=== PATIENT | female | born 1955 | race Caucasian/White ===

== ENCOUNTER → 2024-01-01 07:18 | Outpatient (REF) | payer MEDICARE, SELFPAY | LOC: RCS 07:18 | PROVIDERS: ATTENDING PHYSICIAN Physician Assistant; FAMILY PHYSICIAN Internal Medicine | DX: I25.10 Atherosclerotic heart disease of native coronary artery without angina pectoris (principal); I25.5 Ischemic cardiomyopathy | CPT/HCPCS: 93306 ==

== ENCOUNTER → 2024-06-08 07:55 | Outpatient (REF) | payer MEDICARE, SELFPAY | LOC: DHCBC/DCA 07:55 | PROVIDERS: ATTENDING PHYSICIAN Internal Medicine Interventional Cardiology; FAMILY PHYSICIAN Internal Medicine | DX: I25.10 Atherosclerotic heart disease of native coronary artery without angina pectoris (principal); I10 Essential (primary) hypertension; Z95.5 Presence of coronary angioplasty implant and graft | CPT/HCPCS: 78452; 93017; A9500; J2785 ==

== ENCOUNTER → 2024-06-28 15:56 | Outpatient (REF) | payer MEDICARE, SELFPAY | LOC: RCS 15:56 | PROVIDERS: ATTENDING PHYSICIAN Internal Medicine Interventional Cardiology; FAMILY PHYSICIAN Internal Medicine | DX: I25.10 Atherosclerotic heart disease of native coronary artery without angina pectoris (principal); I10 Essential (primary) hypertension; Z95.5 Presence of coronary angioplasty implant and graft | CPT/HCPCS: 93306 ==

== ENCOUNTER 2024-07-08 16:02 | Emergency (ER) | payer MEDICARE, SELFPAY ==
[2024-07-08 16:07] VITALS: BP 142/82
--- NOTE | 2024-07-08 16:46 | ED.GENMED ---
History of Present Illness
General
Chief Complaint: Musculo-Skeletal Complaint
Source: patient
Exam Limitations: none
Time Seen by Provider: 07/08/24 16:29
Nursing documentation reviewed up to this point in time: agreed with
History of Present Illness
History of Present Illness:
68-year-old female with past ministry of hypertension hyperlipidemia, CAD status post stent presented to the emergency department today with concerns of left wrist discomfort over the past week and a half unclear any specific injuries proceeding no
redness or warmth no fevers
Past History
Past History
ED Past Medical History: HTN and Hypercholesterolemia
Social History
Tobacco: Smoker
Review of Systems
Review of Systems
Allergies reviewed?: Yes
All Other Systems: ROS reviewed and negative except as documented in HPI and ROS
Phy Exam
Physical Exam
Physical Exam:
GENERAL: Alert , in no apparent distress
EYE: pupils equal and reactive
NECK: Supple, no significant adenopathy.
ENT: o/p clr, mmm.
CARDIAC: Regular rate and rhythm .
LUNGS: Clear breath sounds bilaterally, no acute respiratory distress, no wheezes/rales/rhonchi
ABDOMEN: Soft, without focal tenderness, no r/g, no cvat
NEUROLOGICAL: Alert and oriented, no focal neuro deficits
SKIN: Warm and dry, skin intact.
MUSCULOSKELETAL: Discomfort to the left wrist overlying the distal radius region. Patient has a positive Urbano test otherwise no redness or warmth good range of motion. No specific bony tenderness. No edema, well perfused.
PSYCH: Normal and appropriate interaction.
Course
Orders/Labs/Results
Orders:
Orders
07/08/24 16:10
CR Wrist - Left Min 3 Views Urgent
Comment:
Reason For Exam: pain
07/08/24 16:45
Splints/Slings/Crut- Treatment ONCE
Location: Left
Type of Splint: Other
Comment: thumb spica
Vital Signs
Initial and Last Documented VS:
Initial Vital Signs
Temp Pulse Resp BP Pulse Ox
98.3 F 79 18 142/82 99
07/08/24 16:07 07/08/24 16:07 07/08/24 16:07 07/08/24 16:07 07/08/24 16:07
Last Documented Vital Signs
Temp Pulse Resp BP Pulse Ox
98.3 F 79 18 142/82 99
07/08/24 16:07 07/08/24 16:07 07/08/24 16:07 07/08/24 16:07 07/08/24 16:07
MDM/Problems Addressed
MDM/Problems Addressed:
68-year-old male presenting to the emergency department today with concerns of wrist discomfort over the past week and a half denies any specific inciting event. No injuries no redness or warmth no fevers no signs of infection on examination.
Patient does have a positive Urbano test potentially consistent with de Quervain's tenosynovitis. Patient was placed in a thumb spica splint advised for orthopedic follow-up for ongoing symptoms advised ice but otherwise stable for discharge
return precautions given.
*Critical Care Note
Total Time (30-74mins, 75-104mins- exclusive of procedures): Not Applicable
ED Attending Note
-
Portions of this chart may have been created with voice recognition software.� Occasional wrong word or��sound alike� substitutions may have occurred due to the inherent limitations of voice recognition software.
Discharge Plan
Departure
Patient Disposition: Home (Routine Discharge)
Date of Disposition: 07/08/24
Time of Disposition: 16:50
Patient with high blood pressure during this ER visit?: No
Condition: Good
Covid-19: Not Applicable
Discharge Problem:
De Quervain's tenosynovitis, left
Instructions: de Quervain tendinopathy
Prescriptions:
No Action
clopidogrel 75 mg Tablet
75 mg PO DAILY Qty: 90 3RF
pantoprazole 40 mg Tablet,Delayed Release (Dr/Ec)
40 mg PO DAILY Qty: 30 0RF
nitroglycerin 0.4 mg Tablet, Sublingual
0.4 mg sublingual [id number] PRN (Reason: chest pain) Qty: 25 1RF
aspirin [Children's Aspirin] 81 mg Tablet,Chewable
81 mg PO DAILY Qty: 1 0RF
metoprolol succinate 25 mg Tablet Extended Release 24 Hr
25 mg PO DAILY Qty: 90 3RF
rosuvastatin 20 mg Tablet
20 mg PO QPM Qty: 90 3RF
cefdinir 300 mg capsule
300 mg PO BID Qty: 6 0RF
Rx Instructions:
sinusitis
nystatin 100,000 unit/mL Suspension
5 ml PO QID Qty: 250 0RF
Referrals:
Erwin Richards MD [Family Provider] -
Betito Perla MD [Active] - Follow up in 5-7 days
Activity Restrictions/Additional Instructions:
You came to the emergency department today with concerns of wrist discomfort. This is likely a tendinopathy. Please rest ice and elevate and otherwise follow-up with orthopedics if symptoms or not improving. Return to the emergency department for
any worsening, new or concerning symptoms.
Interventions
Interventions:
*Risk Screen - Suicide Last Done: 07/08/24 16:07
*General Assessment Last Done: 07/08/24 16:07
*Neglect/Abuse Screening Last Done: 07/08/24 16:07
Discharge Date and Time
Print Language: PUERTO RICAN
== END 2024-07-08 17:06 | disposition home or self-care (01) ==
LOC: EMR 16:02
PROVIDERS: EMERGENCY PHYSICIAN Emergency Medicine; FAMILY PHYSICIAN Internal Medicine
DX: M65.4 Radial styloid tenosynovitis [de Quervain] (principal); M25.532 Pain in left wrist; I10 Essential (primary) hypertension; E78.00 Pure hypercholesterolemia, unspecified; I25.10 Atherosclerotic heart disease of native coronary artery without angina pectoris; I25.2 Old myocardial infarction; F17.200 Nicotine dependence, unspecified, uncomplicated; Z95.5 Presence of coronary angioplasty implant and graft; Z85.828 Personal history of other malignant neoplasm of skin; Z79.82 Long term (current) use of aspirin; Z88.5 Allergy status to narcotic agent
CPT/HCPCS: 99283; 29125; 73110

== ENCOUNTER 2025-04-03 10:56 | Emergency (ER) | payer MEDICARE, SELFPAY ==
[2025-04-03] VITALS (9 sets, daily range): BP systolic 103–167; BP diastolic 64–122
[2025-04-03 11:30] LABS: % Basophils 0.6 % (0-2); % Eosinophils 1.9 % (0-6); % Immature Granulocytes 0.4 % (0-0.5); % Lymphocytes 27.3 % (20.5-51.1); % Monocytes 11.4 % (1.7-9.3); % Neutrophils 58.4 % (42.2-75.2); Absolute Eosinophils 0.1 10^3/uL (0-0.7); Absolute Lymphocytes 1.3 10^3/uL (1.2-3.4); Absolute Monocytes 0.5 10^3/uL (0.1-0.6); Absolute Neutrophils 2.8 10^3/uL (1.4-6.5); Hematocrit 38.9 % (37.0-47.0); Hemoglobin 12.8 g/dL (12.0-16.0); Mean Corp Hgb Conc. 32.9 g/dL (33.0-37.0); Mean Corpuscular Hgb 27.8 pg (27.0-31.0); Mean Corpuscular Volume 84.4 fL (81.0-99.0); Mean Platelet Volume 10.2 fL (7.4-10.4); Nucleated Red Blood Cells % 0 %; Platelet Count 160 10^3/uL (130-400); Red Blood Cell Count 4.61 10^6/uL (4.20-5.40); Red Cell Dist. Width 15.5 % (11.5-14.5); White Blood Cell Count 4.7 10^3/uL (4.8-10.8)
--- NOTE | 2025-04-03 11:30 | ED.GENMED ---
History of Present Illness
General
Chief Complaint: Chest Pain
Time Seen by Provider: 04/03/25 11:30
History of Present Illness
History of Present Illness:
TIME OF INITIAL ENCOUNTER: 11:30 AM
HPI: Patient presents with chest pain described as a 'like somebody punching me' since yesterday. This is associated with lightheadedness/dizziness. She was at the dentist yesterday when this started. The symptoms are not necessarily exertional
in nature. In October 2023 she had 2 LAD stents placed with Dr. Olvera. She was taken off of Plavix a few months ago. The pain currently feels nothing like the time that she had a heart attack described as a severe pressure sensation.
EXAM:
GENERAL: Well appearing in no distress
HEENT: Moist oral mucosa
CARDIOVASCULAR: No murmurs, normal heart rate, regular rhythm, No chest wall tenderness
PULMONARY: No respiratory distress, breath sounds are clear and equal
ABDOMEN: Soft with no peritoneal signs, no tenderness
NEUROLOGIC: Excellent strength all extremities, no coordination deficits
PSYCHIATRIC: Appropriate mental status, normal insight and judgement
EXTREMITIES: Nontender, no edema, moves all extremities equally
SKIN: No rash, no lesions
NUMBER AND COMPLEXITY OF PROBLEMS ADDRESSED AT THE ENCOUNTER
� Chronic conditions affecting care: FL/CAD
� Acute Exacerbation and/or Progression of Chronic Illness: This is an acute problem
� Differential Diagnosis includes: ACS, anxiety, noncardiac chest pain, chest wall pain
AMOUNT AND/OR COMPLEXITY OF DATA TO BE REVIEWED AND ANALYZED
� I performed an independent evaluation of and my interpretation is:
EKG: Sinus 85, left axis deviation, poor R wave progression, septal Q waves also seen in 2022
CT:
X-rays: I see no acute chest x-ray abnormality
Laboratory Studies: Troponins negative, second troponin negative. CBC chemistries unremarkable
Other:
� Review of other/old records: Nuclear imaging from last year showed a fixed defect basal inferior consistent with infarction and was inconclusive for ischemia. Echo from last June showed EF of 35 to 40%. Apical akinesis
noted. Stage I diastolic dysfunction. A previous echo showed an EF of 25 to 30%. Cath from October 2023CI 100% acute thrombotic proximal LAD with 2 stents placed and had 30 to 40% stenosis mid left circumflex.
� Clinical information was obtained by an independent historian: I spoke to family
� Prescriptions/Medications Considered but not given:
� Further testing considered but not performed:
RISK OF COMPLICATIONS AND/OR MORBIDITY OR MORTALITY OF PATIENT MANAGEMENT
� Social determinants of health affecting care:. Lives at home
� Discussion with other providers: I discussed case with Dr. Paredes
� Escalation of care including admission/observation vs risk of discharge considered: The patient reports improvement after nitroglycerin was given. She has been essentially chest pain-free throughout her stay in the emergency
department.
ANY OTHER UPDATES:
Patient becoming upset throughout her stay in the Emergency Department. Very upset with the beeping from the monitor. She has been wanting to go home. She will stay for the echo and is eager to leave.
Past History
Past History
ED Past Medical History: HTN and Hypercholesterolemia
Social History
Tobacco: Smoker
Phy Exam
Physical Exam
Physical Exam:
See HPI
Scores
Heart Score for Chest Pain Patients
STEMI patient?: Not applicable
Course
Orders/Labs/Results
Orders:
Orders
04/03/25 10:57
EKG [Electrocardiogram (*1)] Urgent
Reason for Study: Chest Pain
EKG- Treatment ONCE
04/03/25 11:18
Complete Blood Count/With Diff Urgent
Comprehensive Metabolic Panel Urgent
Glycohemoglobin (HgbA1c) Urgent
NT-proBNP Urgent
Comment: ADD ON
PT/INR [Prothrombin Time] Urgent
Is patient on Coumadin/Warfarin?: No
Comment: [email or web address]
PTT Urgent
Troponin I Urgent
04/03/25 11:44
Nitroglycerin Sublingual [Nitrostat (Sublingual)] 0.4 mg SL [id number] PRN
04/03/25 13:21
Add On- LAB Routine
Tests Added?: proBNP, hgbA1c
04/03/25 13:22
CXR2 [CR Chest - 2 Views ] Urgent
Comment:
Reason For Exam: CP, SOB, swelling
04/03/25 13:56
Echo 2D MMode Color/Doppler Urgent
Reason for Study: CP, SOB, dizziness, history of CAD/CM
04/03/25 14:04
Troponin I Stat
Abnormal Lab Results
04/03/25
11:18
WBC 4.7 L 10^3/uL
(4.8-10.8)
MCHC 32.9 L g/dL
(33.0-37.0)
RDW 15.5 H %
(11.5-14.5)
Monocytes % 11.4 H %
(1.7-9.3)
Chloride 108 H mmol/L
(98-107)
BUN 23 H mg/dl
(7-17)
Creatinine 1.1 H mg/dL
(0.6-1.0)
Glucose 190 H mg/dl
(70-99)
Hemoglobin A1c 6.9 H %
(4.0-5.6)
04/03/25 11:18
04/03/25 11:18
Vital Signs
Initial and Last Documented VS:
Initial Vital Signs
Temp Pulse Resp BP Pulse Ox
37.1 C 89 18 167/101 97
04/03/25 11:03 04/03/25 11:03 04/03/25 11:03 04/03/25 11:03 04/03/25 11:03
Last Documented Vital Signs
Temp Pulse Resp BP Pulse Ox
37.1 C 69 16 147/100 99
04/03/25 11:03 04/03/25 15:15 04/03/25 13:00 04/03/25 15:22 04/03/25 15:22
*Critical Care Note
Total Time (30-74mins, 75-104mins- exclusive of procedures): Not Applicable
ED Attending Note
-
Portions of this chart may have been created with voice recognition software.� Occasional wrong word or��sound alike� substitutions may have occurred due to the inherent limitations of voice recognition software.
Discharge Plan
Departure
Patient Disposition: Home (Routine Discharge)
Date of Disposition: 04/03/25
Time of Disposition: 15:19
Patient with high blood pressure during this ER visit?: Yes
Discharge Problem:
Chest pain
Instructions: Chest Pain DCA Follow Up, BLOOD PRESSURE
Prescriptions:
No Action
clopidogrel 75 mg Tablet
75 mg PO DAILY Qty: 90 3RF
pantoprazole 40 mg Tablet,Delayed Release (Dr/Ec)
40 mg PO DAILY Qty: 30 0RF
nitroglycerin 0.4 mg Tablet, Sublingual
0.4 mg sublingual [id number] PRN (Reason: chest pain) Qty: 25 1RF
aspirin [Children's Aspirin] 81 mg Tablet,Chewable
81 mg PO DAILY Qty: 1 0RF
metoprolol succinate 25 mg Tablet Extended Release 24 Hr
25 mg PO DAILY Qty: 90 3RF
rosuvastatin 20 mg Tablet
20 mg PO QPM Qty: 90 3RF
cefdinir 300 mg capsule
300 mg PO BID Qty: 6 0RF
Rx Instructions:
sinusitis
nystatin 100,000 unit/mL Suspension
5 ml PO QID Qty: 250 0RF
Referrals:
[facility] [Other]
Erwin Richards MD [Family Provider, Internal Medicine]
Dali Lagos PA-C [Specified Professional Personl, Cardiology] - 04/23/25 9:40 am
Referral Note: You have a cardiology follow-up appointment at the [place] office with Dr. Olvera's physician assistant unit forester, Dali. Please call with questions
Activity Restrictions/Additional Instructions:
2 cardiac blood tests are negative for signs of heart attack. I see no abnormality on the chest x-ray. Return here if worse or other concerns. Follow-up Dr. Olvera.
Interventions
Interventions:
*Risk Screen - Suicide Last Done: 04/03/25 11:03
*General Assessment Last Done: 04/03/25 11:03
*Neglect/Abuse Screening Last Done: 04/03/25 11:20
*ED- Fall Risk Assessment Last Done: 04/03/25 11:20
*ED COVID-19 Vaccine History Last Done: 04/03/25 11:20
ED- Cardiac Assessment Last Done: 04/03/25 11:20
Discharge Date and Time
Print Language: POLISH
[2025-04-03 11:37] LABS: INR 0.95
[2025-04-03 11:39] LABS: APTT 30.8 Sec (23.4-35.0)
[2025-04-03] MEDS: NITROSTAT (SUBLINGUAL) 0.4 MG SL (11:47)
[2025-04-03 11:49] LABS: ALT (SGPT) 22 U/L (0-35); AST (SGOT) 20 U/L (14-36); Albumin 4.4 g/dl (3.5-5.0); Alkaline Phosphatase 100 U/L (38-126); Blood Urea Nitrogen 23 mg/dl (7-17); Calcium 9.2 mg/dl (8.4-10.2); Carbon Dioxide 23 mmol/L (22-30); Chloride 108 mmol/L (98-107); Glucose 190 mg/dl (70-99); Sodium 138 mmol/L (135-145); Total Bilirubin 0.7 mg/dl (0.2-1.3); Total Protein 6.8 g/dl (6.3-8.2); eGFR 53.72
[2025-04-03 11:54] LABS: Troponin I < 0.012 ng/ml
--- NOTE | 2025-04-03 13:18 | CON.CAR ---
Addendum entered and electronically signed by Tay Figueroa DO 04/03/25 16:36:
I saw and examined the patient.
The Truck Sales Manager's note was reviewed and I agree with the note.
Comment:
Plan:
She presented with multiple symptoms including occasional chest pain shortness of breath and dizziness over several weeks. She has been playing tennis without symptoms.
Troponins were negative x 2.
Chest x-ray without acute changes and proBNP was not significantly elevated.
Urgent echo performed at the bedside showed stable cardiomyopathy with EF 35 to 40% and apical akinesis as previous.
We discussed medication compliance. She will take aspirin 81 mg daily.
We did discuss further evaluation however she requested discharge from the emergency room.
She was given a follow-up visit in the office for reevaluation. She could be considered for possible ischemic evaluation at that time including stress testing. Her last stress test was reviewed and was in 2023
Discussed with her family who was at bedside. Discussed with the emergency room.
Original Note:
Consultation
Consultation Request
Date/Time Consultation Performed: 04/03/25
Requesting Provider: Dr. Forrest
Performing Provider: Morenita Frazier PA-C for Dr. Figueroa
Reason for Consultation: CP
Medical History
-
Chief Complaint: CP
History of Present Illness:
Patient is a 69-year-old female with past medical history of anterior/anterolateral STEMI 10/2023 s/p LAD PCI x2 with CM initially 25% improved by subsequent echo to 35-40% in 06/2024. She also has hypertension and hyperlipidemia. She quit smoking
on the day of her heart attack. She had been taking dual antiplatelet therapy with aspirin and Plavix, until she had a tooth pulled and stopped aspirin but continued Plavix and then post dental procedure resumed DAPT. As of 02/20/2025 office
appointment, Plavix was stopped and she was continued on aspirin only. She reports since that time she has noted her blood pressures have been elevated. She also reports issues with shortness of breath. She complains of left-sided chest
discomfort which feels like 'someone punched me in the chest'. She states she has been 'popping aspirin' in addition to her daily baby aspirin. She denies associated arm pain. She has been able to play tennis on Tuesdays and without
difficulty. She reports she has been nauseous and lightheaded. She reports she was at the dentist yesterday to get her teeth whitened, however due to dizziness her procedure was canceled and she had to reschedule. Her blood pressure was not
checked while at the dentist office. She also reports she has been having issues with swelling in her feet and ankles making it difficult to put shoes on and also feels as though her hands are swollen and her rings are getting stuck on her fingers.
Initial troponin negative. She was given 1 sublingual nitro with improvement in pain, now pain-free. Last ischemic evaluation 06/2024 without evidence of active ischemia. Cardiology consulted for evaluation.
PMH:
Anterior/lateral STEMI
s/p prox LAD 2 overlapping 2.5 x 23 mm and 3.0 x 23 mm Xience vega point drug-eluting stents 10/2023
Ischemic cardiomyopathy, EF 35-40% by echo 06/2024
HTN
Hyperlipidemia
GERD
Former smoker
History of noncompliance
Past Medical History
Past Medical History: Other (in HPI)
Social History
Tobacco: Former Smoker
Alcohol: None
Living: With Family
Employment: Retired
Family History
Family History: Cancer
Allergies / Home Medications
Allergy/AdvReac Type Severity Reaction Status Date / Time
codeine Allergy Nausea / Verified 04/03/25 11:03
Vomiting
�Medication �Instructions �Recorded �Confirmed �Type
aspirin 81 mg chewable tablet 81 mg PO DAILY Heart 10/16/23 Rx
(Children's Aspirin) disease/condition #1 tab
cefdinir 300 mg capsule 300 mg PO BID #6 caps 10/16/23 Rx
clopidogrel 75 mg tablet 75 mg PO DAILY Blood clot 10/16/23 Rx
prevention/tx #90 tabs
metoprolol succinate 25 mg 25 mg PO DAILY Heart 10/16/23 Rx
tablet,extended release 24 hr disease/condition #90 tabs
nitroglycerin 0.4 mg sublingual 0.4 mg sublingual [id number] PRN 10/16/23 Rx
tablet chest pain #25 tabs
nystatin 100,000 unit/mL oral 5 ml PO QID #250 mL 10/16/23 Rx
suspension
pantoprazole 40 mg tablet,delayed 40 mg PO DAILY Gastrointestinal 10/16/23 Rx
release issue #30 tabs
rosuvastatin 20 mg tablet 20 mg PO QPM #90 tabs 10/16/23 Rx
Review of Systems
-
History Source: Patient
All other systems: Negative unless noted
Physical Exam
Vital Signs
Temp Pulse Resp BP Pulse Ox
98.7 F 71 16 130/68 97
04/03/25 11:03 04/03/25 13:00 04/03/25 13:00 04/03/25 13:00 04/03/25 13:00
Lab Results
04/03/25 11:18
04/03/25 11:18
Troponin I < 0.012 ng/ml 04/03/25 11:18
Physical Exam
General: No Apparent Distress and Comfortable
HEENT: Normocephalic, Anicteric and Moist Mucous Membranes
Respiratory: Clear and Non Labored Respirations
Cardiac: S1/S2 and Regular Rhythm
GI: Soft, Non Tender, Non Distended and Normal Bowel Sounds
Musculoskeletal: No Clubbing, No Cyanosis and No Edema
Skin: Warm and Dry
Neuro: AO x 3
Impression / Plan
-
Primary Boilermaking Supervisor: Dr. Olvera
Assessment:
Presentation with CP, SOB, dizziness
Anterior/lateral STEMI
s/p prox LAD 2 overlapping 2.5 x 23 mm and 3.0 x 23 mm Xience vega point drug-eluting stents 10/2023
Ischemic cardiomyopathy, EF 35-40% by echo 06/2024
HTN
Hyperlipidemia
GERD
Former smoker
History of noncompliance
ECHO 01/01/24: EF 25 to 30%, mildly dilated LV, mid anteroseptal, mid anterior, mid septal, mid inferior, apical akinesis, stage I diastolic dysfunction
ECHO 06/28/24: EF 35 to 40%, apical akinesis, stage I diastolic dysfunction, mild TR
Lexiscan nuclear stress test 06/08/2024: Large area of severely decreased perfusion fixed in basal inferior, mid anterior segment, mid inferior, apical septal, apical anterior, apical lateral and apex segments consistent with infarction, imaging shows
global hypokinesis with a EF of 40% and dilated ventricle
Plan:
- Patient presents with symptoms of chest pressure, shortness of breath and dizziness over the last several weeks. She reports it is relieved by taking aspirin, and today by taking sublingual nitro x 1
- EKG sinus rhythm with prior septal infarct, stable compared to prior in office from 02/20/2025
- Initial troponin negative, repeat now
- Check chest x-ray
- Check proBNP
- Given history of ischemic cardiomyopathy, check echocardiogram
- Continue aspirin 81mg daily. She has not been taking Plavix as directed
- She is presently on p.o. Lasix 20 mg daily. Pending results of above, could consider increasing. Creatinine 1.1
- Prior hemoglobin A1c 7.5%. She states she was told by her primary care physician she does not have diabetes, although her household appliances salesperson told her she does have diabetes. Repeat hemoglobin A1c
- Further recommendations based on results of above testing
- Discussed with patient and grandson at bedside
Data Reviewed
-
EKG: Tracing Personally Visualized and interpreted
Medical Tests (Nuc Med, Echo etc): Report Reviewed by me
Labs: Labs Reviewed by me
Old Records: Reviewed
[2025-04-03 14:34] LABS: Troponin I < 0.012 ng/ml
[2025-04-03 14:48] LABS: Glycohemoglobin (HgbA1c) 6.9 % (4.0-5.6)
[2025-04-03 14:51] LABS: NT-proBNP 310 pg/ml
== END 2025-04-03 16:05 | disposition home or self-care (01) ==
LOC: EMR 10:56
PROVIDERS: Emergency Medicine; Physician Assistant; EMERGENCY PHYSICIAN Emergency Medicine; FAMILY PHYSICIAN Internal Medicine; OTHER PHYSICIAN Nuclear Medicine Nuclear Cardiology
DX: R07.89 Other chest pain (principal); R42 Dizziness and giddiness; R11.0 Nausea; M79.89 Other specified soft tissue disorders; I10 Essential (primary) hypertension; E78.00 Pure hypercholesterolemia, unspecified; I25.10 Atherosclerotic heart disease of native coronary artery without angina pectoris; I25.5 Ischemic cardiomyopathy; K21.9 Gastro-esophageal reflux disease without esophagitis; I25.2 Old myocardial infarction; Z95.5 Presence of coronary angioplasty implant and graft; Z87.891 Personal history of nicotine dependence; Z79.899 Other long term (current) drug therapy; Z88.5 Allergy status to narcotic agent
CPT/HCPCS: 99285; 71046; 80053; 83036; 83880; 84484; 85025; 85610; 85730; 93005; 93306; Q9950